=== PATIENT | female | born 1955 | race Caucasian/White ===

== ENCOUNTER 2017-11-14 07:13 | Day surgery (SDC) | payer OTHER ==
[2017-11-14] MEDS ORDERED: hydrALAzine 20 MG INJ ×2 (09:22→09:25)
[2017-11-14] MEDS ORDERED: PROPOFOL 40 ML (09:22)
[2017-11-14] MEDS ORDERED: LABETALOL HCL 20MG INJ (09:25)
[2017-11-14] MEDS ORDERED: PROPOFOL 20 ML (09:46)
[2017-11-14] MEDS ORDERED: FENTAnyl 50 MCG/ML VIAL (12:06)
[2017-11-14] MEDS ORDERED: ONDANSETRON 4 MG INJ (12:18)
== END 2017-11-14 12:14 | disposition home or self-care (01) ==
LOC: GIL 07:13
DX: Z12.11 Encounter for screening for malignant neoplasm of colon (principal); K63.5 Polyp of colon; K29.50 Unspecified chronic gastritis without bleeding; B96.81 Helicobacter pylori [H. pylori] as the cause of diseases classified elsewhere; K21.9 Gastro-esophageal reflux disease without esophagitis; K44.9 Diaphragmatic hernia without obstruction or gangrene; E78.5 Hyperlipidemia, unspecified; I10 Essential (primary) hypertension
CPT/HCPCS: 43239; 88305; 88312

== ENCOUNTER 2017-11-14 13:58 | Emergency (ER) | payer OTHER ==
[~2017-11-14 13:58] MED LIST: DEXAMETHASONE 4 MG/ML 1 ML INJ; KETOROLAC 30 MG INJ
[2017-11-14] MEDS: KETOROLAC 15 MG INJ IV (14:48)
[2017-11-14] MEDS: LORAZEPAM 2 MG INJ IV (14:49)
== END 2017-11-14 16:00 | disposition home or self-care (01) ==
LOC: E/R 13:58
DX: G89.4 Chronic pain syndrome (principal); I10 Essential (primary) hypertension; E66.9 Obesity, unspecified; Z68.34 Body mass index [BMI] 34.0-34.9, adult
CPT/HCPCS: 96374; 96375; 99284-25